=== PATIENT | female | born 1965 | race Caucasian/White ===

== ENCOUNTER 2018-02-24 00:20 | Emergency (ER) | payer MEDICAID ==
[2018-02-24] MEDS: DIAZEPAM 5 MG/ML SYG IM (02:48)
[2018-02-24] MEDS: KETOROLAC 60 MG INJ IM (02:49)
== END 2018-02-24 03:43 | disposition home or self-care (01) ==
LOC: FTE 00:20
DX: M54.5 Low back pain (principal); I10 Essential (primary) hypertension; E11.9 Type 2 diabetes mellitus without complications; Z79.01 Long term (current) use of anticoagulants; Z79.84 Long term (current) use of oral hypoglycemic drugs
CPT/HCPCS: 72128; 81025; 96372; 99285-25

== ENCOUNTER 2018-06-05 19:16 | Emergency (ER) | payer MEDICAID ==
[2018-06-05 20:57] LABS: URINE BLOOD (Dip) POC 3+ (NEGATIVE); URINE KETONES (Dip) POC 2+ (NEGATIVE); URINE LEUKOCYTE EST (Dip) POC Negative (NEGATIVE); URINE NITRITE (Dip) POC Negative (NEGATIVE); URINE TOTAL PROTEIN POC 3+ (NEGATIVE)
[2018-06-05] MEDS: IBUPROFEN 800 MG TAB PO (21:03)
[2018-06-05] MEDS: PHENAZOPYRIDINE 100 MG TAB PO (21:04)
[2018-06-05 21:14] LABS: ADD UMIC YES; UR ASCORBIC ACID NEGATIVE (NEGATIVE); UR BACTERIA FEW /HPF (NONE SEEN); UR BILIRUBIN (Dip) NEGATIVE (NEGATIVE); UR BLOOD (Dip) 3+ mg/dL (NEGATIVE); UR CLARITY CLOUDY (CLEAR); UR COLOR YELLOW (YELLOW); UR GLUCOSE (Dip) 3+ mg/dL (NEGATIVE); UR KETONES (Dip) 1+ mg/dL (NEGATIVE); UR LEUKOCYTE ESTERASE (Dip) 2+ Leu/ul (NEGATIVE); UR MUCUS FEW /HPF (NONE SEEN); UR NITRITE (Dip) NEGATIVE (NEGATIVE); UR NONSQUAMOUS EPITHELIAL CELL 1 /HPF (NONE SEEN); UR RBC > 182 /HPF (0-5); UR SPECIFIC GRAVITY (Dip) 1.039 (1.003-1.030); UR SQUAMOUS EPITHELIAL CELL FEW /HPF (FEW); UR TOTAL PROTEIN (Dip) 2+ mg/dl (NEGATIVE); UR UROBILINOGEN (Dip) NEGATIVE (NEGATIVE); UR WBC > 182 /HPF (0-5)
== END 2018-06-05 21:34 | disposition home or self-care (01) ==
LOC: FTE 19:16
DX: N30.01 Acute cystitis with hematuria (principal); I10 Essential (primary) hypertension; E11.9 Type 2 diabetes mellitus without complications; Z79.01 Long term (current) use of anticoagulants; Z79.84 Long term (current) use of oral hypoglycemic drugs; Z86.73 Personal history of transient ischemic attack (TIA), and cerebral infarction without residual deficits
CPT/HCPCS: 81001; 81003; 81025; 99283

== ENCOUNTER 2019-01-04 23:15 | Emergency (ER) | payer MEDICAID ==
[2019-01-05] MEDS: LIDOCAINE 4% CR TOP (01:09)
[2019-01-05] MEDS: LIDOCAINE 1% (MDV) 20 ML INJ SC (01:09)
[2019-01-05] MEDS: OXYCODONE/ACETAMINOPHEN (5/325) TAB PO (01:09)
== END 2019-01-05 04:32 | disposition home or self-care (01) ==
LOC: FTE 23:15
DX: L02.414 Cutaneous abscess of left upper limb (principal); E11.9 Type 2 diabetes mellitus without complications; I10 Essential (primary) hypertension; Z79.84 Long term (current) use of oral hypoglycemic drugs; Z86.73 Personal history of transient ischemic attack (TIA), and cerebral infarction without residual deficits
CPT/HCPCS: 10060; 99283-25